=== PATIENT | male | born 1985 | race Two or more races ===

== ENCOUNTER 2016-10-07 08:18 | Emergency (ER) | payer OTHER ==
[~2016-10-07] VITALS: Ht 167.6 cm; Wt 71.2 kg
[2016-10-07] MEDS ORDERED: ACETAMINOPHEN ES 500 MG TABLET PO ONE (08:30)
[2016-10-07] MEDS ORDERED: ACETAMINOPHEN ES 500 MG TABLET ONE (08:34)
[2016-10-07 08:54] LABS: BASOPHILS % (AUTO) 0.3 % (0.0-2.0); DIFF TOTAL % 100 %; EOSINOPHILS % (AUTO) 0.4 % (0.0-6.0); HEMATOCRIT 48 % (39-51); HEMOGLOBIN 16.1 g/dL (13.5-17.5); LYMPHOCYTES # (AUTO) 1.2 /CMM (0.8-4.8); LYMPHOCYTES % (AUTO) 14.3 % (20.0-44.0); MEAN CORPUSCULAR HEMOGLOBIN 30 PG (26.0-33.0); MEAN CORPUSCULAR HGB CONC 34 g/dl (31.0-36.0); MEAN CORPUSCULAR VOLUME 90 fL (80-96); MONOCYTES # (AUTO) 0.4 /CMM (0.1-1.30); MONOCYTES % (AUTO) 4.5 % (2.0-12.0); NEUTROPHILS # (AUTO) 6.8 /CMM (1.8-8.9); NEUTROPHILS % (AUTO) 80.5 % (43.0-81.0); PLATELET COUNT (AUTO) 352 /CMM (150-450); RED BLOOD CELL COUNT(AUTO) 5.33 MIL/uL (4.5-6.0); WHITE BLOOD COUNT (AUTO) 8.5 K/uL (4.3-11.0)
[2016-10-07 08:55] LABS: CALCIUM, SERUM 9.4 mg/dL (8.5-10.1); CREATININE 0.7 mg/dL (0.6-1.3); POTASSIUM 3.9 mmol/L (3.5-5.1)
[2016-10-07 09:01] LABS: ALBUMIN 4.6 g/dL (3.4-5.0); BILIRUBIN,DIRECT 0.3 mg/dL (0.0-0.2); BILIRUBIN,TOTAL 1.3 mg/dL (0.2-1.0); TOTAL PROTEIN, SERUM 8.3 g/dL (6.4-8.2)
[2016-10-07 09:23] LABS: KETONES,URINE NEGATIVE (NEGATIVE); LEUKOCYTE ESTERASE ,URINE NEGATIVE (NEGATIVE); PH,URINE 7.5 (5.0-8.0)
[2016-10-07 09:28] LABS: ADD UA MICROSCOPIC YES
[2016-10-07 09:44] LABS: ADD URINE CULTURE YES; WBC,URINE 0-2 /HPF (0-3)
[2016-10-07 10:12] VITALS: BP 129/78
== END 2016-10-07 10:13 | disposition home or self-care (01) ==
LOC: ER 08:19
DX: R10.84 Generalized abdominal pain (principal)
CPT/HCPCS: 36415; 74176; 80048; 80076; 81001; 83690; 85025; 87086; 99285; A4606; Z7610; 81000-TC

== ENCOUNTER 2016-10-08 16:11 | Emergency (ER) | payer OTHER ==
[~2016-10-08] VITALS: Ht 167.6 cm; Wt 70.3 kg
[2016-10-08] MEDS ORDERED: PANTOPRAZOLE 40 MG VIAL IV ONE (17:00)
[2016-10-08] MEDS ORDERED: PANTOPRAZOLE 40 MG VIAL ONE (17:06)
[2016-10-08 17:12] LABS: BASOPHILS # (AUTO) 0.1 /CMM (0.0-0.2); BASOPHILS % (AUTO) 0.7 % (0.0-2.0); DIFF TOTAL % 100 %; EOSINOPHILS # (AUTO) 0.1 /CMM (0.0-0.7); EOSINOPHILS % (AUTO) 0.8 % (0.0-6.0); HEMATOCRIT 44 % (39-51); HEMOGLOBIN 15.2 g/dL (13.5-17.5); LYMPHOCYTES # (AUTO) 1.9 /CMM (0.8-4.8); LYMPHOCYTES % (AUTO) 22.3 % (20.0-44.0); MEAN CORPUSCULAR HEMOGLOBIN 31 PG (26.0-33.0); MEAN CORPUSCULAR HGB CONC 34 g/dl (31.0-36.0); MEAN CORPUSCULAR VOLUME 90 fL (80-96); MONOCYTES # (AUTO) 0.5 /CMM (0.1-1.30); MONOCYTES % (AUTO) 5.9 % (2.0-12.0); NEUTROPHILS # (AUTO) 6.1 /CMM (1.8-8.9); NEUTROPHILS % (AUTO) 70.3 % (43.0-81.0); PLATELET COUNT (AUTO) 318 /CMM (150-450); RED BLOOD CELL COUNT(AUTO) 4.93 MIL/uL (4.5-6.0); WHITE BLOOD COUNT (AUTO) 8.7 K/uL (4.3-11.0)
[2016-10-08 17:20] LABS: CALCIUM, SERUM 9.1 mg/dL (8.5-10.1); CREATININE 0.7 mg/dL (0.6-1.3); POTASSIUM 3.5 mmol/L (3.5-5.1)
[2016-10-08 17:26] LABS: ALBUMIN 4.1 g/dL (3.4-5.0); BILIRUBIN,DIRECT 0.3 mg/dL (0.0-0.2); BILIRUBIN,TOTAL 1.2 mg/dL (0.2-1.0); INDIRECT BILIRUBIN 0.9 mg/dL (0.0-1.1); TOTAL PROTEIN, SERUM 7.5 g/dL (6.4-8.2)
[2016-10-08] MEDS ORDERED: ONDANSETRON HCL/PF 4 MG/2 ML VIAL IV ONE (18:00)
[2016-10-08] MEDS ORDERED: IV NS 0.9% 1,000 ML BAG IV ONE (18:00)
[2016-10-08] MEDS ORDERED: MORPHINE SULFATE INJ 2 MG/ML DISP.SYRIN IV ONE (18:00)
[2016-10-08] MEDS ORDERED: IV SET PRIMARY 1 EA INFUS.SET MC ONE (18:23)
[2016-10-08] MEDS ORDERED: MORPHINE SULFATE INJ 2 MG/ML DISP.SYRIN ONE (18:23)
[2016-10-08] MEDS ORDERED: ONDANSETRON HCL/PF 4 MG/2 ML VIAL ONE (18:23)
[2016-10-08] MEDS ORDERED: IV NS 0.9% 1,000 ML ONE (18:23)
[2016-10-08 19:23] VITALS: BP 130/77
== END 2016-10-08 19:24 | disposition home or self-care (01) ==
LOC: ER 16:12
DX: K80.50 Calculus of bile duct without cholangitis or cholecystitis without obstruction (principal)
CPT/HCPCS: 36415; 76705; 80048; 80076; 83690; 85025; 96361; 96374; 96375; 99285; A4606; C9113; J2270; J2405; J7030; Z7610

== ENCOUNTER 2019-05-14 00:44 | Emergency (ER) | payer OTHER ==
[~2019-05-14] VITALS: Ht 167.6 cm; Wt 68.0 kg
--- NOTE | 2019-05-14 01:30 | NUR ---
PT BIBSELF C/O RUQ PAIN, PT STATES "I'M FEELING BLOATED". PT TOOK [employer], MINIMAL RELIEF. PT AAOX4. RESPIRATIONS EVEN AND UNLABORED. SKIN WARM AND INTACT. ABLE TO AMBULATE WITH STEADY GAIT. NO ACUTE DISTRESS NOTED AT THIS TIME
--- NOTE | 2019-05-14 02:10 | NUR ---
COMMODITIES MANAGER AT BEDSIDE FOR BLOOD DRAW. URINE COLLECTED AND SENT TO LAB
[2019-05-14 02:20] LABS: BASOPHILS % (AUTO) 0.2 % (0.0-2.0); EOSINOPHILS % (AUTO) 0.1 % (0.0-6.0); HEMATOCRIT 45 % (39-51); HEMOGLOBIN 14.8 g/dL (13.5-17.5); LYMPHOCYTES # (AUTO) 0.4 /CMM (0.8-4.8); LYMPHOCYTES % (AUTO) 2.5 % (20.0-44.0); MEAN CORPUSCULAR HGB CONC 33 g/dl (31.0-36.0); MEAN CORPUSCULAR VOLUME 96 fL (80-96); MONOCYTES # (AUTO) 0.9 /CMM (0.1-1.30); MONOCYTES % (AUTO) 6.2 % (2.0-12.0); NEUTROPHILS # (AUTO) 13.8 /CMM (1.8-8.9); PLATELET COUNT (AUTO) 249 /CMM (150-450); RED BLOOD CELL COUNT(AUTO) 4.66 MIL/uL (4.5-6.0); WHITE BLOOD COUNT (AUTO) 15.2 K/uL (4.3-11.0)
[2019-05-14 02:23] LABS: APPEARANCE,URINE Clear (CLEAR); BILIRUBIN,URINE SMALL (NEGATIVE); BLOOD, URINE Small Ery/uL (NEGATIVE); COLOR,URINE Other (YELLOW); KETONES,URINE Trace (NEGATIVE); LEUKOCYTE ESTERASE ,URINE Negative (NEGATIVE); NITRITE, URINE Negative (NEGATIVE); PH,URINE 5.5 (5.0-8.0); PROTEIN,URINE Negative (NEGATIVE); UGLUCOSE Negative (NEGATIVE)
[2019-05-14 02:33] LABS: CALCIUM, SERUM 8.7 mg/dL (8.5-10.1); CARBON DIOXIDE 26 mmol/L (21-32); CHLORIDE 104 mmol/L (98-107); CREATININE 0.9 mg/dL (0.6-1.3); GLUCOSE 131 mg/dL (74-106); POTASSIUM 3.5 mmol/L (3.5-5.1); SODIUM SERUM 140 mmol/L (136-145); UREA NITROGEN, BLOOD 10 mg/dL (7-18)
[2019-05-14 02:38] LABS: ALANINE AMINOTRANSFERASE 16 U/L (12-78); ALBUMIN 3.9 g/dL (3.4-5.0); ALKALINE PHOSPHATASE 51 U/L (46-116); ASPARTATE AMINOTRANSFERASE 10 U/L (15-37); BILIRUBIN,DIRECT 0.5 mg/dL (0.0-0.2); BILIRUBIN,TOTAL 2.3 mg/dL (0.2-1.0); LIPASE 97 U/L (73-393); TOTAL PROTEIN, SERUM 6.9 g/dL (6.4-8.2)
[2019-05-14 03:02] LABS: BACTERIA,URINE RARE /HPF (None Seen); RBC,URINE 0-2 /HPF (0-2); WBC,URINE 0-2 /HPF (0-3)
--- NOTE | 2019-05-14 03:02 | NUR ---
ULTRASOUND AT BEDSIDE
[2019-05-14 03:03] LABS: HYALINE CASTS, URINE Rare /LPF (None Seen); MUCUS,URINE Few /LPF (None Seen); SQUAMOUS EPITHELIAL CELL,UR RARE /HPF (None Seen)
--- NOTE | 2019-05-14 03:50 | NUR ---
PT ambulatory with a steady gait. Patient discharged to home in stable condition. Written and verbal after care instructions given. Patient verbalizes understanding of instruction.
[2019-05-14 03:53] VITALS: BP 110/70
== END 2019-05-14 03:53 | disposition home or self-care (01) ==
LOC: ER 00:46
DX: K80.50 Calculus of bile duct without cholangitis or cholecystitis without obstruction (principal); F10.10 Alcohol abuse, uncomplicated; Y90.9 Presence of alcohol in blood, level not specified; Z88.2 Allergy status to sulfonamides
CPT/HCPCS: 36415; 76705-TC; 80048-TC; 80076-TC; 81000-TC; 83690-TC; 84484-TC; 85025-TC; 85730-TC